=== PATIENT | female | born 1970 | race Caucasian/White ===

== ENCOUNTER 2023-08-08 14:49 | Outpatient (CLI) | payer BC, SELFPAY ==
--- NOTE | 2023-08-08 14:54 | MM_ITS ---
WS: [id number] BILATERAL 3D TOMOSYNTHESIS DIGITAL SCREENING MAMMOGRAPHY WITH CAD CLINICAL INFORMATION: SCREENING HISTORY: Screening mammogram. No current complaints. COMPARISON: None. TECHNIQUE: Bilateral CC and MLO views. FINDINGS: Scattered fibroglandular densities bilaterally. No suspicious focal mass, asymmetry, calcifications, or architectural distortion. No evidence of malignancy. Incidental punctate and lucent centered calci fications. IMPRESSION: MM/[place] [id number] BI-RADS: 2-Benign FOLLOW UP: 1 Year Follow-up Recommend return to annual screening mammography.
== END 2023-08-08 14:50 | disposition home or self-care (01) ==
LOC: RAD 14:49
PROVIDERS: Visit Provider Family Medicine
DX: Z12.31 Encounter for screening mammogram for malignant neoplasm of breast (principal)
CPT/HCPCS: 77063; 77067

== ENCOUNTER 2024-08-14 20:09 | Emergency (ER) | payer BC, SELFPAY ==
--- NOTE | 2024-08-14 20:11 | ECG_ITS ---
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 Measurements Intervals [place] Rate: 97 P: 66 MS: 199 QRS: 19 QRSD: 110 T: 29 QT: 351 QTc: 447 Interpretive Statements SINUS RHYTHM POSSIBLE LEFT ATRIAL ENLARGEMENT [-0.1mV P-WAVE IN V1/V2] INCOMPLETE RIGHT BUNDLE BRANCH BLOCK SEPTAL MYOCARDIAL INFARCTION , OF INDETERMINATE AGE Incomplete right bundle-branch block now present Myocardial infarct finding now present Ectopic atrial rhythm no longer present Electronically Signed On 08-15-2024 14:05:18 BASKETBALL COACH by Anant Chappell M.D. [id number]
[2024-08-14 20:18] VITALS: BP 178/98; PULSE 102; RESP 16; TEMP 36.6; O2SAT 98; BMI 28.8
--- NOTE | 2024-08-14 20:29 | XRR_ITS ---
PROCEDURE INFORMATION: Exam: XR Chest Exam date and time: 08/14/2024 8:50 PM Age: 53 years old Clinical indication: Chest pressure; Patient HX: C/O chest pain TECHNIQUE: Imaging protocol: Radiologic exam of the chest. Views: 1 view. COMPARISON: CR XR ribs LT 2V* [id number] 08/01/2022 10:36 AM FINDINGS: Lungs: Unremarkable. No consolidation. Pleural spaces: Unremarkable. No pleural effusion. No pneumothorax. Heart/Mediastinum: Unremarkable. No cardiomegaly. Bones/joints: Unremarkable. XR/XR chest 1V portable [id number] IMPRESSION: No acute findings.
[2024-08-14 20:46] LABS: Basophils # 0.1 10^3/uL (0.0-0.1); Basophils % 0.7 %; Eosinophils # 0.2 10^3/uL (0.0-0.8); Eosinophils % 2.3 %; Hematocrit 45.9 % (36-47); Lymphocytes # 3.5 10^3/uL (0.8-4.8); Lymphocytes % 42.4 %; Mean Corpuscular HGB Conc 32.2 g/dL (30-55); Mean Corpuscular Volume 96.2 fl (85-98); Monocytes # 0.5 10^3/uL (0.2-0.9); Monocytes % 6.2 %; Neutrophils # 3.98 10^3/uL (1.8-7.7); Neutrophils % 48.2 %; Nucleated Red Blood Cells % 0 %; Platelet Count 231 10^3/cmm (157-399); Red Blood Count 4.77 10^6/uL (3.85-5.65); Red Cell Distribution Width 12.1 % (12.1-15.1); White Blood Count 8.27 10^3/uL (3.29-11.43)
[2024-08-14] MEDS: lidocaine 2% viscous 15 ML, aluminum-mag hydrox-simethicon 30 ML, sucralfate oral liq 1 GM PO (20:58)
[2024-08-14] MEDS: nitroglycerin 0.4 mg sublingual Tablet SUBLINGUAL (21:02)
[2024-08-14] MEDS: aspirin 81 mg Chew Tablet 324 MG PO (21:02)
[2024-08-14 21:03] VITALS: BP 145/84; PULSE 100; RESP 20; O2SAT 95
[2024-08-14 21:14] LABS: Troponin(5th) Baseline < 6 ng/L (0-10)
[2024-08-14 21:17] LABS: Albumin Level 4.7 g/dL (3.5-5.2); Alkaline Phosphatase 113 U/L (35-105); Anion Gap 17.9 (5-19); Aspartate Amino Transferase 22 U/L (0-32); Blood Urea Nitrogen 21 mg/dL (6-20); Calcium 9.2 mg/dL (8.5-10.5); Carbon Dioxide 22 mmol/L (22-29); Chloride 106 mmol/L (98-107); Globulin 2.4 g/dL (1.3-4.6); Glomerular Filtration Rate 87.5 mL/min (90-130); Glucose 124 mg/dL (65-115); Lipase 48 U/L (13-60); NT Pro B Type Natriuretic Pept 88 pg/mL (0-125); Osmolality Calculated 298 mOsm/kg (285-295); Potassium 3.9 mmol/L (3.5-5.1); Sodium 142 mmol/L (136-145); Total Bilirubin 0.2 mg/dL (0.15-1.2); Total Protein 7.1 g/dL (6.6-8.7)
[2024-08-14 21:28] LABS: Alanine Aminotransferase 44 U/L (0-33)
[2024-08-14 21:29] LABS: Partial Thromboplastin Time 30.8 SECONDS (23.9-36.7)
[2024-08-14 22:08] VITALS: BP 138/81; PULSE 89; RESP 16; O2SAT 97
--- NOTE | 2024-08-15 10:20 | ED_ITS ---
HPI - Chest Pain 2 General: Chief Complaint: Chest Pain Stated Complaint: High BP head pain left arm tingling pain in back Time Seen by Provider: 08/14/24 20:23 History of Present Illness: This patient is a 53-year-old white female who presents to the emergency department stating that her chest is felt uncomfortable for the past 3 days. She does have a history of hypertension. She states she has had chest discomfort in the past secondary to high blood pressure. She is also having some back pain. No shortness of breath. She has had some nausea and some heartburn. Currently rates her pain a 3 on a scale of 1-10. She does take metoprolol 100 mg/day for her hypertension. Associated symptoms: Reports nausea Related Data Previous Rx's Medication Instructions Recorded lisinopril 10 1 tab PO DAILY #30 tabs 08/14/24 mg-hydrochlorothiazide 12.5 mg tablet Allergies Allergy/AdvReac Type Severity Reaction Status Date / Time Penicillins Allergy ALGY-Anaphy Verified 08/14/24 20:21 laxis Review of Systems 2 General: Reports: 10 or more systems reviewed and unremarkable except in HPI and below Card: Reports: chest pain GI: Reports: nausea Physical Exam 2 Const: COMMON NORMALS: no acute distress, patient oriented x3 and no limitations GENERAL APPEARANCE: cooperative and comfortable HENMT: COMMON NORMALS: normocephalic, atraumatic, Normal nasal mucous membranes and turbinates present, moist oral mucous membranes and oropharynx normal HEAD & SCALP: normal to inspection, normocephalic and atraumatic F MICHAEL & SINUS: normal facial exam NOSE: Normal nasal mucous membranes and turbinates present Eye: COMMON NORMALS: Equal, round and reactive pupils present, EOMs intact bilaterally and conjunctivae normal GENERAL EYE: appearance normal, both eyes and all related structures CONJUNCTIVA: Yes conjunctivae normal PUPIL: Yes Equal, round and reactive pupils present Neck/C-Spine: COMMON NORMALS: supple and no JVD Chest: COMMONS NORMALS: normal inspection of the chest Resp: COMMON NORMALS: normal respiratory effort and clear to auscultation bilaterally AUSCULTATION: clear to auscultation bilaterally Cardio: COMMON NORMALS: no JVD, regular rate, regular rhythm, No gallops present (Cardio), No murmurs present (Cardio) and No rub (Cardio) RATE: r egular rate RHYTHM: regular rhythm GI: COMMON NORMALS: Normal to inspection, nondistended, normoactive bowel sounds present, Soft to palpation and non-tender AUSCULTATION: Yes normoactive bowel sounds PALPATION: Yes Soft to palpation : COMMON NORMALS: Yes no CVA tenderness BLADDER/KIDNEY EXAM: Yes no CVA tenderness Back/Pelvis: COMMON NORMALS: no CVA tenderness and thoracic and lumbar spine normal to inspection Extremity: COMMON NORMALS: normal to inspection Neuro: COMMON NORMALS: patient oriented x3 and CN's II-XII intact bilaterally Psych: COMMON NORMALS: mental status grossly normal, Normal thought process present and cooperative THOUGHT PROCESS: Normal thought process present Skin: COMMON NORMALS: no rashes or lesions noted, turgor normal and no jaundice GENERAL SKIN EXAM: no rashes or lesions noted and turgor normal Course 2 Vital Signs: Vital signs: Vital Signs Temperature 97.9 F 08/14/24 20:18 Pulse Rate 89 08/14/24 22:08 Respiratory Rate 16 08/14/24 22:08 Blood Pressure 138/81 08/14/24 22:08 Pulse Oximetry 97 08/14/24 22:08 Oxygen Delivery Me thod Room Air 08/14/24 21:03 MDM - Chest Pain Medical Decision Making EKG revealed normal sinus rhythm with no ST segment abnormalities. Chest x-ray was normal. CBC and CMP were normal. Lipase normal. Troponin was less than 6. Patient was initially given a GI cocktail which she states did not help. We then gave her aspirin and nitro. She states her pain has resolved now. Her blood pressure was 178 systolic and after the nitro came down to 130s systolic. I did prescribe lisinopril hydrochlorothiazide . Recommended she follow- up with her primary care physician next week for recheck and ongoing management of her hypertension. She was discharged in stable condition. Lab Data 08/14/24 20:40 08/14/24 20:40 Radiology Impressions Chest X-Ray 08/14/24 20:29 IMPRESSION: No acute findings. Laboratory Results WBC 8.27 10^3/uL (3.29-11.43) 08/14/24 20:40 RBC 4.77 10^6/uL (3.85-5.65) 08/14/24 20:40 Hgb 14.80 g/dL (11.27-16.99) 08/14/24 20:40 Hct 45.9 % (36-47) 08/14/24 20:40 MCV 96.2 fl (85-98) 08/14/24 20:40 MCH 31.0 pg (27-33) 08/14/24 20:40 MCHC 32.2 g/dL (30-55) 08/14/24 20:40 RDW 12.1 % (12.1-15.1) 08/14/24 20:40 Plt Count 231 10^3/cmm (157-399) 08/14/24 20:40 MPV 10.0 fL (7.4-10.4) 08/14/24 20:40 Neut % (Auto) 48.2 % 08/14/24 20:40 Lymph % (Auto) 42.4 % 08/14/24 20:40 [place] % (Auto) 6.2 % 08/14/24 20:40 Eos % (Auto) 2.3 % 08/14/24 20:40 Baso % (Auto) 0.7 % 08/14/24 20:40 Neut # (Auto) 3.98 10^3/uL (1.8-7.7) 08/14/24 20:40 Lymph # (Auto) 3.5 10^3/uL (0.8-4.8) 08/14/24 20:40 [place] # (Auto) 0.5 10^3/uL (0.2-0.9) 08/14/24 20:40 Eos # (Auto) 0.2 10^3/uL (0.0-0.8) 08/14/24 20:40 Baso # (Auto) 0.1 10^3/uL (0.0-0.1) 08/14/24 20:40 Nucleated RBC % (auto) 0 % 08/14/24 20:40 Nucleated RBCs # 0.0 /100WBC 08/14/24 20:40 PT 12.40 SECONDS (12.1-14.9) 08/14/24 20:40 INR 0.90 (0.8-1.2) 08/14/24 20:40 APTT 30.8 SECONDS (23.9-36.7) 08/14/24 20:40 Sodium 142 mmol/L (136-145) 08/14/24 20:40 Potassium 3.9 mmol/L (3.5-5.1) 08/14/24 20:40 Chloride 106 mmol/L (98-107) 08/14/24 20:40 Carbon Dioxide 22 mmol/L (22-29) 08/14/24 20:40 Anion Gap 17.9 (5-19) 08/14/24 20:40 BUN 21 mg/dL (6-20) H 08/14/24 20:40 Creatinine 0.7 mg/dL (0.5-0.9) 08/14/24 20:40 GFR Calculation 87.5 mL/min (90-130) L 08/14/24 20:40 Glucose 124 mg/dL (65-115) H 08/14/24 20:40 Calculated Osmolality 298 mOsm/kg (285-295) H 08/14/24 20:40 Calcium 9.2 mg/dL (8.5-10.5) 08/14/24 20:40 Total Bilirubin 0.2 mg/dL (0.15-1.2) 08/14/24 20:40 AST 22 U/L (0-32) 08/14/24 20:40 ALT 44 U/L (0-33) H 08/14/24 20:40 Alkaline Phosphatase 113 U/L (35-105) H 08/14/24 20:40 Troponin T Baseline < 6 ng/L (0-10) 08/14/24 20:40 NT-Pro-B Natriuret Pep 88 pg/mL (0-125) 08/14/24 20:40 Total Protein 7.1 g/dL (6.6-8.7) 08/14/24 20:40 Albumin 4.7 g/dL (3.5-5.2) 08/14/24 20:40 Globulin 2.4 g/dL (1.3-4.6) 08/14/24 20:40 Lipase 48 U/L (13-60) 08/14/24 20:40 All radiology interpretation(s) finalized by discharge Discharge Plan Discharge Patient Disposition: Home Clinical Impression: Atypical chest pain Hypertension Qualifiers: Hypertension type: primary hypertension Qualified Code(s): I10 - Essential (primary) hypertension Condition: Stable Prescriptions: New lisinopril-hydrochlorothiazide 10-12.5 mg tablet 1 tab PO DAILY Qty: 30 0RF Discharge Orders: Discharge ED (Routine); Ordered 08/14/24 Ordered By: Krzysztof Sahni Referrals: Suzie Wilson MD [Primary Care Provider] - Patient Instructions: Hypertension, Chest Pain (DC) Activity Restrictions/Additional Instructions: Check your blood pressures and follow-up with your primary care physician next week for ongoing management of your hypertension. Discuss possible stress test. Coding Level of Care Code ED Aids Social Worker for Evita Cortez
== END 2024-08-14 22:12 | disposition home or self-care (01) ==
PROVIDERS: Emergency Provider Emergency Medicine; PCP Family Medicine
DX: R07.89 Other chest pain (principal); I10 Essential (primary) hypertension
CPT/HCPCS: 36415; 71045; 80053; 83690; 83880; 84484; 85025; 85610; 85730; 93005; 99285

== ENCOUNTER 2024-10-11 11:53 | Outpatient (CLI) | payer BC, SELFPAY ==
--- NOTE | 2024-10-11 12:02 | ECG_ITS ---
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 Baseline heart rate was 101 beats per minute. Baseline blood pressure was 142/77 millimeters of mercury. Target heart rate was 166 beats per minute. Maximum heart rate achieved was 145, which was 87 % of the target heart rate. Maximum blood pressure was 176/79 millimeters of mercury. Total exercise time was 6 minutes 32 seconds. Maximum METs achieved was 10.2 maximum VO2 was 35.7. The reason for ending the test was maximum effort achieved. The patient complained of shortness of breath during the stress test, which then resolved at the end of the test. ELECTROCARDIOGRAM: BASELINE: Showed sinus rhythm, normal axis, no significant ST-T changes at the baseline noted. EXERCISE: At the peak exercise level, No significant ST-T changes suggestive of ischemia noted. RECOVERY: During the recovery period, heart rate dropped appropriately. No significant ST-T changes in the recovery suggestive of ischemia noted. [] CONCLUSION: 1. Exercise capacity fair. 2. Heart rate response was appropriate 3. Blood pressure response was appropriate 4. Symptoms not suggestive of ischemia. 5. Electrocardiogram portion of the stress test was not suggestive of ischemia. Electronically Signed On 10-18-2024 21:58:06 HOTEL SALES MANAGER by INDRA FORTE [id number]
[2024-10-11 12:58] VITALS: BP 110/61; PULSE 93
--- NOTE | 2024-10-11 12:58 | PC.NURSE ---
patient unable to walk more than 2 minutes on the treadmill d/t leg fatigue and SOB. He got off the treadmill and returned to the bed while it was still running. He stated, I just cannot do it today . Dr. Mancera notified.
== END 2024-10-11 11:54 | disposition home or self-care (01) ==
LOC: CDL 11:54
PROVIDERS: PCP Family Medicine; Visit Provider Family Medicine
DX: R07.9 Chest pain, unspecified (principal); R06.02 Shortness of breath
CPT/HCPCS: 93017

== ENCOUNTER 2024-11-15 08:33 | Outpatient (CLI) | payer BC, SELFPAY ==
--- NOTE | 2024-11-15 | MM_ITS ---
WS: [id number] BILATERAL SCREENING DIGITAL TOMOSYNTHESIS MAMMOGRAM WITH CAD HISTORY: ANNUAL SCREEN COMPARISON: 08/08/2023 Bilateral CC and MLO views with tomosynthesis and synthetic mammography submitted. Computer aided det ection analyzed. Breast composition: There are scattered areas of fibroglandular density. No suspicious masses, microc alcifications or architectural distortion. Benign calcifications RIGHT breast. MM/MM scr BI tomosynthesis [id number] IMPRESSION: BI-RADS: 2 - Benign. FOLLOW UP: 1 Year Follow-up
== END 2024-11-15 08:34 | disposition home or self-care (01) ==
PROVIDERS: PCP Family Medicine; Visit Provider Family Medicine
DX: Z12.31 Encounter for screening mammogram for malignant neoplasm of breast (principal); R92.323 Mammographic fibroglandular density, bilateral breasts; R92.1 Mammographic calcification found on diagnostic imaging of breast
CPT/HCPCS: 77063; 77067

== ENCOUNTER 2024-11-16 09:31 | Outpatient (CLI) | payer BC, SELFPAY ==
--- NOTE | 2024-11-16 09:34 | CT_ITS ---
WS: [id number] LDCT LUNG CANCER SCREENING TECHNIQUE: Noncontrast CT of the chest with coronal and sagittal reformatted images. CLINICAL INFORMATION: NICOTINE DEPENDENCE COMPARISON: None. DLP: 72.40 mGy.cm DIvol: Mean CTDIvol: 1.60 (mGy) All CT scans at [facility] use at least one of these dose optimization techniques: automated exposure control; mA and/or kV adjustment per patient size (includes targeted exams where dose is matched to clinical indication); or iterative reconstruction. FINDINGS: Fibrosis in the lung apices. A few calcified granulomas. Chronic emphysematous changes. No suspicious pulmonary normalities. Aortic calcification. Coronary calcification. No mediastinal or hilar lymphadenopathy. No axillary lymphadenopathy. Adrenal glands are normal. Hepatomegaly. Small esophageal hernia. Mild thoracic kyphosis. Endplate Schmorl's nodes in the thoracic spine. CT/CT lung screening [id number] IMPRESSION: LUNG-RADS: 1-Negative FOLLOW UP: 12 Month: Continue annual screening with LDCT
== END 2024-11-16 09:32 | disposition home or self-care (01) ==
PROVIDERS: PCP Family Medicine; Visit Provider Family Medicine
DX: Z12.2 Encounter for screening for malignant neoplasm of respiratory organs (principal); F17.210 Nicotine dependence, cigarettes, uncomplicated; J84.10 Pulmonary fibrosis, unspecified; I70.0 Atherosclerosis of aorta; I25.10 Atherosclerotic heart disease of native coronary artery without angina pectoris; R16.0 Hepatomegaly, not elsewhere classified; K44.9 Diaphragmatic hernia without obstruction or gangrene; M40.294 Other kyphosis, thoracic region; M51.44 Schmorl's nodes, thoracic region
CPT/HCPCS: 71271